=== PATIENT | male | born 1980 | race Caucasian/White ===

== ENCOUNTER 2020-08-28 10:23 | Outpatient (CLI) | payer BC ==
--- NOTE | 2020-08-28 11:10 | RAD ---
EXAM: XR Ankle Lt 3 View STANDARD PROVIDED CLINICAL HISTORY: Pain status post injury FINDINGS: There is no evidence for fracture or other acute osseous abnormality. Alignment appears anatomic. Marizol nt spaces appear preserved. Plantar calcaneal enthesophyte formation is demonstrated. IMPRESSION: No evidence for an acute osseous abnormality. If there is persistent clinical concern, conservative m anagement and follow-up imaging advised.
== END 2020-08-28 10:24 | disposition home or self-care (01) ==
LOC: SCSRAD 10:23
PROVIDERS: ATTEND Family Medicine
DX: S93.402A Sprain of unspecified ligament of left ankle, initial encounter (principal)

== ENCOUNTER 2022-09-01 09:41 | Outpatient (CLI) | payer BC ==
[2022-09-01 14:54] LABS: #Basophils 0.1 thou/uL (0.0-0.2); #Eosinphils 0.3 thou/uL (0.0-0.7); #Lymphocytes 1.9 thou/uL (1.20-3.40); #Monocytes 0.9 thou/uL (0.11-0.59); #Neutrophils 3.4 thou/uL (1.40-6.50); %Basophils 1.2 % (0.0-1.0); %Eosinophils 5.3 % (0.0-10.0); %Monocytes 13.2 % (0.0-10.0); %Neutrophils 51.3 % (42.0-75.0); Hemoglobin 15.3 g/dL (14.0-18.0); Mean Corpuscular HGB CONC 33.6 g/dL (32.0-36.0); Mean Corpuscular Hemoglobin 29.4 pg (27.0-31.0); Mean Corpuscular Volume 87.6 fl (78.0-98.0); Mean Platelet Volume 7.7 fL (7.4-10.4); Platelet Count 317 10x3/uL (130-400); RBC Distribution Width 11.5 % (11.5-14.5); Red Blood Cell (RBC) Count 5.21 mill/uL (4.70-6.10); White Blood Cell (WBC) Count 6.6 10x3/uL (4.8-10.8)
== END 2022-09-01 09:42 | disposition home or self-care (01) ==
LOC: SCSRAD 09:41
PROVIDERS: ATTEND Family Medicine
DX: M13.0 Polyarthritis, unspecified (principal)
CPT/HCPCS: 36415; 83520; 85025; 85652; 86038; 86140; 86200; 86225